=== PATIENT | female | born 1990 | race Caucasian/White ===

== ENCOUNTER 2016-09-07 01:32 | Emergency (ER) | payer SELFPAY ==
[2016-09-07 02:13] LABS: #Basophils 0.1 thou/uL (0.0-0.2); #Eosinphils 0.2 thou/uL (0.0-0.7); #Lymphocytes 1.4 thou/uL (1.20-3.40); #Monocytes 0.7 thou/uL (0.11-0.59); #Neutrophils 5.6 thou/uL (1.40-6.50); %Basophils 0.7 % (0.0-1.0); %Eosinophils 2.1 % (0.0-10.0); %Monocytes 8.2 % (0.0-10.0); Mean Platelet Volume 6.5 fL (7.4-10.4); Red Blood Cell (RBC) Count 4.68 mill/uL (4.20-5.40); White Blood Cell (WBC) Count 7.9 thou/uL (4.8-10.8)
[2016-09-07 02:27] LABS: Blood, Urine Negative (Negative); Glucose, Urine (Dipstick) 100 mg/dL (Negative); Ketone, Urine Negative (Negative); Nitrite Positive (Negative); Protein, Urine (Dipstick) 100 mg/dL (Neg-Trace)
[2016-09-07 02:28] LABS: ALT (SGPT) 610 U/L (0-55); AST (SGOT) 358 U/L (5-34); Alkaline Phosphatase 168 U/L (40-150); Anion Gap 14 mmol/L (10-20); BUN (Urea Nitrogen) 7 mg/dL (7.0-18.7); Bilirubin, Total 5.2 mg/dL (0.2-1.2); Calc. Creatinine Clearance 0 mL/min (70-130); Calcium 9.7 mg/dL (7.8-10.44); Carbon Dioxide 25 mmol/L (22-29); Chloride 107 mmol/L (98-107); Estimated GFR-MDRD 81; Globulin 3.3 g/dL (2.4-3.5); Lipase 57 U/L (8-78); Protein, Total 7.7 g/dL (6.0-8.3)
[2016-09-07 02:30] LABS: Bilirubin Large (Negative)
[2016-09-07 02:34] LABS: Bacteria/HPF 3+ HPF (None Seen); Squamous Epithelial 0-3 HPF (0-3)
[2016-09-07] MEDS ORDERED: Ketorolac Tromethamine 30 MG/ML VIAL ONE (02:48)
[2016-09-07] MEDS ORDERED: Ondansetron HCl/PF 4 MG/2 ML Vial ONE (02:48)
[2016-09-07] MEDS ORDERED: Ondansetron HCl/PF 4 MG/2 ML Vial IVP SCH (03:00)
[2016-09-07] MEDS ORDERED: Ketorolac Tromethamine 30 MG/ML VIAL IVP SCH (03:00)
[2016-09-07] MEDS ORDERED: Sodium Chloride 0.9% 1,000 ML IV SCH (03:00)
[2016-09-07] MEDS ORDERED: cefTRIAXone\\ROCEPHIN 1 GM VIAL ONE (03:51)
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
--- NOTE | 2016-09-07 04:39 | PICIS ---
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 AcctNum: [id number] Prepared: WedSep 07, 2016 04:37 by Interface Page 9 of 13 pMD [facility] EMERGENCY RECORD sensory deficits. SKIN: Skin exam included findings of skin warm, dry, and normal in color. LAB INTERPRETATION (03:41 MBRI) INTERPRETATION: I reviewed the lab results. EVENTS TRANSFER: Triage to Emergency Emergency Room -02. (01:39 AADK) Removed from Emergency Emergency Room -02. (04:27 AADK) RADIOLOGYINTERPRETATION (03:47 MBRI) ABDOMEN: Abdomen/pelvis CT scan, with contrast shows, Other findings: biliary ductal dilatation with abrupt cutoff of the distal CBD. May represent choledocholithiasis or nonvisualized mass in this region. TRAVEL COUNSELOR: Preliminary review of CT scans by, Radiologist. O2SAT INTERPRETATION (02:16 MBRI) O2SAT: Oxygen saturation interpretation: Normal. DOCTOR NOTES TEXT: Findings noted and plan discussed with pt and family. Pt stable for ground EMS transfer to [facility] for further evaluation and care. Discussed with Dr Conklin, accepted for care at 0346. Abx started for probable UTI. Pain improved at this time and VSS. (03:49 MBRI) PATIENT STATUS: Patient has stabilized since arrival to emergency department. (03:49 MBRI) PATIENT PLAN: The patient requires a transfer and will be transferred, per physician request, due to availability of specialty care, Transfer form completed. (03:44 MBRI) DATA REVIEWED: Lab data reviewed, Xray data reviewed, Discussed with family. (03:49 MBRI) PROBLEM LIST No recorded problems DIAGNOSIS (03:52 MBRI) FINAL: PRIMARY: Possible choledocholithiasis vs other obstructive process, ADDITIONAL: hepatitis, UTI. DISPOSITION PATIENT: Disposition Type: Transfer, Disposition: Transfer to [facility], Condition: Fair. (03:52 MBRI) Patient left the department. (04:27 AADK) PRESCRIPTION No recorded prescriptions &a-1R&a+25V*p+0X*f3779M*c202B*c15G*c2P*p-0X&a-25V&a+1R Name: Deborah Rizzo : 1990 F26 MedRec: [id number] AcctNum: [id number] Prepared: WedSep 07, 2016 04:37 by Interface Page 10 of 13 pMD [facility] EMERGENCY RECORD IMAGING *SUPPLY CHARGE SHEET: Image captured from scanner. (04:00 AADK) CT REPORT: Image captured from scanner. (04:00 AADK) Page 2 added. Image captured from scanner. (04:01 AADK) PHYSICIAN CERTIFICATION STATEMENT: Image captured from scanner. (04:01 AADK) *MEMORANDUM OF TRANSFER: Image captured from scanner. (04:01 AADK) CONSENTS: Image captured from scanner. (04:02 AADK) RESULTS (02:38 MBRI) LABORATORY: Urinalysis with Microscopic Collection DT: WedSep 07, 2016 02:27, Color Dark yellow , Range (Yellow), Clarity Cloudy , Range (Clear), Specific [place], Urine 1.030 , Range (1.002-1.036), pH, Urine 6.0 , Range (5.0-9.0), *Leukocyte Small - H , Range (Negative), *Nitrite Positive - H , Range (Negative), *Protein, Urine (Dipstick) 100 - H mg/dL, Range (Neg-Trace), *Glucose, Urine (Dipstick) 100 - H mg/dL, Range (Negative), Ketone, Urine Negative mg/dL, Range (Negative), Urobilinogen 1.0 mg/dL, Range (0.2-1.0), *Bilirubin Large - H , Range (Negative), CAUTION Urine, Bilirubin has a high incidence of false positive results due to urine color, interference. Interpret results in conjunction with other clinical, findings. , Blood, Urine Negative , Range (Negative), RBC/HPF 4-6 HPF, Range (0-3), *WBC/HPF Greater Than 50-TNTC HPF, * - H , Range (0-3), Squamous Epithelial 0-3 HPF, Range (0-3), *Bacteria/HPF 3+ - H HPF, Range (None Seen). Lipase Collection DT: WedSep 07, 2016 02:17, Lipase 57 U/L, Range (8-78). Comprehensive Metabolic Panel Collection DT: WedSep 07, 2016 02:17, Sodium 143 mmol/L, Range (136-145), *Potassium 3.2 - L mmol/L, Range (3.5-5.1), Chloride 107 mmol/L, Range (98-107), Carbon Dioxide 25 mmol/L, Range (22-29), Anion Gap 14 mmol/L, Range (10-20), BUN (Urea Nitrogen) 7 mg/dL, Range (7.0-18.7), Creatinine 0.84 mg/dL, Range (0.6-1.1), Estimated GFR-MDRD 81 , Reference Range for Estimated GFR: Greater than 90, mL/min/1.73 m2 &a-1R&a+25V*p+0X*b3490Y*c202B*c15G*c2P*p-0X&a-25V&a+1R Name: Deborah Rizzo : 1990 [address]: [id number] AcctNum: [id number] Prepared: WedSep 07, 2016 04:37 by Interface Page 11 of 13 pMD [facility] EMERGENCY RECORD NOTE: The MDRD equation has not been validated for use, with the elderly (over 70 years of age), women, patients with, serious comorbid condition or persons with extremes of body size, muscle, mass, or nutritional status. , *Glucose 139 - H mg/dL, Range (70-105), Calcium 9.7 mg/dL, Range (7.8-10.44), *Bilirubin, Total 5.2 - H mg/dL, Range (0.2-1.2), Protein, Total 7.7 g/dL, Range (6.0-8.3), NOTE: Plasma values are generally 0.3 to 0.5 g/dL higher than serum values, due to the presence of fibrinogen. , Albumin 4.4 g/dL, Range (3.5-5.0), Globulin 3.3 g/dL, Range (2.4-3.5), Alb/Glob Ratio 1.3 g/dL, Range (1.2-2.2), *Alkaline Phosphatase 168 - H U/L, Range (40-150), *AST (SGOT) 358 - H U/L, Range (5-34), *ALT (SGPT) 610 - H U/L, Range (0-55). CBC with Differential Collection DT: WedSep 07, 2016 02:17, White Blood Cell (WBC) Count 7.9 thou/uL, Range (4.8-10.8), Red Blood Cell (RBC) Count 4.68 mill/uL, Range (4.20-5.40), Hemoglobin 13.3 g/dL, Range (12.0-16.0), Hematocrit 41.0 %, Range (36.0-47.0), Mean Corpuscular Volume 87.5 fl, Range (81.0-99.0), Mean Corpuscular Hemoglobin 28.4 pg, Range (27.0-31.0), Mean Corpuscular HGB CONC 32.4 g/dL, Range (32.0-36.0), RBC Distribution Width 13.7 %, Range (11.5-14.5), Platelet Count 268 thou/uL, Range (130-400), *Mean Platelet Volume 6.5 - L fL, Range (7.4-10.4), %Neutrophils 71.4 %, Range (42.0-75.0), *%Lymphocytes 17.6 - L %, Range (21.0-51.0), %Monocytes 8.2 %, Range (0.0-10.0), %Eosinophils 2.1 %, Range (0.0-10.0), %Basophils 0.7 %, Range (0.0-1.0), #Neutrophils 5.6 thou/uL, Range (1.40-6.50), #Lymphocytes 1.4 thou/uL, Range (1.20-3.40), *#Monocytes 0.7 - H thou/uL, Range (0.11-0.59), #Eosinphils 0.2 thou/uL, Range (0.0-0.7), #Basophils 0.1 thou/uL, Range (0.0-0.2). Test, Serum (BHCG) Collection DT: WedSep 07, 2016 02:17, BHCG - Serum NEGATIVE , Range (NEGATIVE), Method of sensitivity- Indeterminant: results should be repeated, after 48 hours. Positive: results may be detected as early as 4-5 days before a first missed menses. Elimination of BHCG-, Elimination following first trimester D&C: 29-44 Days , Elimination following term : 8-24 Days . &a-1R&a+25V*p+0X*l3393A*c202B*c15G*c2P*p-0X&a-25V&a+1R Name: Deborah Rizzo : 1990 F26 MedRec: [id number] AcctNum: [id number] Prepared: WedSep 07, 2016 04:37 by Interface Page 12 of 13 pMD [facility] EMERGENCY RECORD Bravo: AADK=TRAY Quiros, Lexis MBRI=DO Hickman Matthew &a-1R&a+25V*p+0X*d1920F*c202B*c15G*c2P*p-0X&a-25V&a+1R Name: Deborah Rizzo [place] : 1990 F26 MedRec: [id number] AcctNum: [id number] Prepared: [facility] Sep 07, 2016 04:37 by Interface Page 13 of 13 pMD MTDD
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
== END 2016-09-07 04:18 | disposition short-term general hospital (02) ==
LOC: BURERS 01:32
DX: K75.9 Inflammatory liver disease, unspecified (principal); N39.0 Urinary tract infection, site not specified; I10 Essential (primary) hypertension; E11.9 Type 2 diabetes mellitus without complications
CPT/HCPCS: 74177; 80053; 81001; 83690; 84703; 85025; 87077; 87086; 87186; 96361; 96365; 96375; J0696; J1885; J2270; J2405

== ENCOUNTER 2016-09-28 20:23 | Emergency (ER) | payer SELFPAY ==
--- NOTE | 2016-09-28 21:07 | ERRECORD ---
[facility] HPI WOUND CHECK (20:53 [facility]) CHIEF COMPLAINT: Patient presents for evaluation of abdominal wound, incision, closed with sutures, Wound is 14 days old. HISTORIAN: History provided by patient, 26F presents with complaints of bleeding from surgical site. Patient had a what seems to be an open cholecystectomy and bile duct stone removal after failed ERCP, on Sep 14. States that over the last two days she has noticed some blood from lateral aspect of incision site and from umbilical surgical site as well. Describes dark oozing blood that resolved spontaneously. Denies other discharge, denies redness, denies pain or tenderness. LOCATION: Symptoms are localized. TIME COURSE: Sudden onset of symptoms, Symptoms have resolved. ASSOCIATED WITH: No associated symptoms. EXACERBATED BY: Patient's condition exacerbated by nothing. RELIEVED BY: Patient's condition relieved by time. ROS (20:56 JJA) CONSTITUTIONAL: Negative constitutional review of systems, Historian denies chills, denies fever. EYES: Negative eye review of systems, Historian denies eye pain, denies vision changes. ENT: Negative ears, nose, throat review of systems, Historian denies rhinorrhea, denies sore throat, denies voice changes. CARDIOVASCULAR: Negative cardiovascular review of systems, Historian denies chest pain, denies palpitations. RESPIRATORY: Negative respiratory review of systems, Historian denies cough, denies shortness of breath. GI: Negative gastrointestinal review of systems, Historian denies abdominal pain, denies constipation, denies diarrhea, denies nausea, denies vomiting. GENITOURINARY FEMALE: Negative genitourinary review of systems, Historian denies dysuria, denies frequency. MUSCULOSKELETAL: Negative musculoskeletal review of systems, Historian denies back pain, denies fall, denies injury. SKIN: Historian denies rash, Historian denies skin changes. dark blood oozing from lateral incision and umbilicus. NEUROLOGIC: Negative neurologic review of systems, Historian denies headache, denies mental status changes, denies paralysis, denies paresthesias, denies sensory changes. HEMO/LYMPHATIC: Normal hematologic/lymphatic system review, Historian denies abnormal blood clotting. ALLERGIC/IMMUNOLOGIC: Normal allergy/immunologic system review, Historian denies frequent infections. PAST MEDICAL HISTORY (20:33 KMOR) MEDICAL HISTORY: Notes: HYPOTENSION WITH ; PT STATES SHE HAD A "UTI" A COUPLE OF MONTHS AGO BUT DID NOT SEEK TREATMENT FOR THIS., Flu vaccine not up to date, Tetanus not up to date, Pneumococcal vaccine not up to date, No past medical history of &a-1R&a+25V*p+0X*n9335G*c202B*c15G*c2P*p-0X&a-25V&a+1R Name: Deborah Rizzo : 1990 F26 MedRec: [id number] AcctNum: [id number] Prepared: WedSep 28, 2016 21:02 by Interface Page 1 of 3 pMD [facility] EMERGENCY RECORD renal disease. FEMALE SURGICAL HISTORY: Surgical history of cholecystectomy, RIGHT BREAST LUMPECTOMY 2010. PSYCHIATRIC HISTORY: No previous psychiatric history. SOCIAL HISTORY: Patient denies alcohol use, Patient denies drug use, Patient has no smoking history, Lives at home, with family. FAMILY HISTORY: Paternal history of diabetes:, Paternal history of hypertension:, Maternal history of diabetes, Maternal history of hypertension. KNOWN ALLERGIES cold weather/temperatures (Unconfirmed) No Known Allergies seasonal allergies (Unconfirmed) CURRENT MEDICATIONS (20:31 KMOR) None VITAL SIGNS (20:29 KMOR) VITAL SIGNS: BP: 125/77, Pulse: 89, Resp: 18, Temp: 98.2 (Oral), Pain: 3, O2 sat: 100 on Room Air, Time: 09/28/2016 20:29. PHYSICAL EXAM (20:56 [facility]) CONSTITUTIONAL: Vital signs reviewed, Patient afebrile, Pulse normal, Blood pressure normal, Respiratory rate normal, Patient appears non toxic, Patient appears pain free, Patient alert and oriented to person, place and time. HEAD: Head exam normal, Head exam included findings of head atraumatic, normocephalic. EYES: Eye exam normal, Eye exam included findings of eyelids normal to inspection, Pupils equally round and reactive to light, Extraocular muscles intact, no nystagmus. ENT: ENT exam normal, Ear exam normal, external ear normal, tympanic membranes normal, no bleeding, Pharynx exam normal, Uvula exam normal, Tonsil exam normal, Mouth exam normal, mucous membranes moist, teeth normal. NECK: Neck exam normal, Neck exam included findings of normal range of motion, Trachea midline, no meningeal signs, no cervical adenopathy, no tenderness. RESPIRATORY CHEST: Respiratory and chest exam normal, Respiratory exam included findings of no respiratory distress, Breath sounds clear. CARDIOVASCULAR: Cardiovascular assessment normal, Cardiovascular exam included findings of heart rate regular rate and rhythm, Heart sounds normal. ABDOMEN FEMALE: Abdominal exam included findings of abdomen nontender, Bowel sounds normal, no distension, no mass, no pulsatile masses, no peritoneal signs, no rigidity, no guarding, no rebound, Rovsing's sign absent. &a-1R&a+25V*p+0X*h1756Y*c202B*c15G*c2P*p-0X&a-25V&a+1R Name: Deborah Rizzo : 1990 F26 MedRec: [id number] AcctNum: [id number] Prepared: WedSep 28, 2016 21:02 by Interface Page 2 of 3 pMD [facility] EMERGENCY RECORD BACK: Back exam normal, Back exam included findings of normal inspection, range of motion normal, no tenderness. UPPER EXTREMITY: Upper extremity exam normal, Upper extremity exam included findings of inspection normal, Range of motion normal, Motor strength normal, Sensation intact, Radial pulse normal. LOWER EXTREMITY: Lower extremity exam normal, Lower extremity exam included findings of inspection normal, Range of motion normal, Motor strength normal, Sensation intact, Posterior tibial pulse normal, Pedal pulse normal. NEURO: Neuro exam normal, Neuro exam findings include patient oriented to person, place and time, Speech normal, Gait normal, Cranial nerves intact, no focal motor deficits, no focal sensory deficits. SKIN: Skin exam included findings of skin warm, dry, and normal in color, no rash, able to express small amount of dark blood from lateral aspect of incision site and umbilicus. No obvious active bleeding. No other discharge. Mild minimal pocket felt inferior to the incision site. Bedside US shows only small superficial pockets, no deeper pocket. No skin erythema. Old ecchymosis beginning to turn yellow. PSYCHIATRIC: Psychiatric exam normal, Normal affect. DOCTOR NOTES (20:59 [facility]) TEXT: Patient presented with mild post op bleeding. No active bleeding, only mild oozing of dark blood. Small pockets seen deep to incision with bedside US, in subcutaneous tissue. No evidence of fistula to intraabdominal contents. Likely normal breakdown products oozing. No signs of infection, no need for further workup or investigation at this time. has follow up scheduled with surgeon in 3 days. PATIENT STATUS: Patient has improved since arrival to emergency department. PATIENT PLAN: The patient will be discharged, The patient will follow up with primary care physician. PROBLEM LIST No recorded problems [facility] FINAL: PRIMARY: OTHER ACUTE POSTPROCEDURAL PAIN. PRESCRIPTION No recorded prescriptions DISPOSITION PATIENT: Disposition Type: Discharge, Disposition: *Discharge Home. [facility] Patient left the department. (20:59 KMOR) Bravo: STEPHANIE=MD Evie, Shubham KMOR=TRAY Estes, Rupa &a-1R&a+25V*p+0X*p5126M*c202B*c15G*c2P*p-0X&a-25V&a+1R Name: Deborah Rizzo [place] : 1990 F26 MedRec: [id number] AcctNum: [id number] Prepared: WedSep 28, 2016 21:02 by Interface Page 3 of 3 pMD MTDD
--- NOTE | 2016-09-28 21:10 | PICIS ---
[facility] EMERGENCY RECORD TRIAGE (20:30 KMOR) TRIAGE NOTES: Post Op bleeding from mami site, was seen on the weekend for same, now bleeding again. (20:30 KMOR) PATIENT: NAME: Deborah Rizzo, AGE: 26, GENDER: female, : Wed1990, TIME OF GREET: WedSep 28, 2016 20:24, PREFERRED LANGUAGE: Slovenian, ETHNICITY: Not or , ECODE BILLING MAP: [facility], SSN: [id number], Zip Code: [address], KG WEIGHT: 99.79, HEIGHT/LENGTH: 160.02cm, BMI: 38.97, PHONE: , , , PERSON ID: [id number], PAYMENT: SJX Self Pay, PCP: none. (20:30 KMOR) COMPLAINT: Post op complications. (20:30 KMOR) ADMISSION: URGENCY: 4 Non Urgent, ADMISSION SOURCE: Home, TRANSPORT: CAR, BED: ER -02. (20:30 KMOR) ASSESSMENT: Assessment: A&XO4. RR EVNE AND UNLABROED., Symptoms began 30 min ago. (20:33 KMOR) PAIN: No complaint of pain. (20:33 KMOR) SIRS SCORING: Heart Rate 55-109 (0), Temp range 96.8-101.1 (0), respiratory rate 12-24 (0), Mental Status altered: no (0), Infection or Suspected Infection: No. (20:33 KMOR) TRIAGE SCREENING: Patient denies suicidal ideation, Patient denies presence of domestic violence. (20:33 KMOR) LMP: Last menstrual period: 09/18/2016. (20:33 KMOR) PROVIDERS: TRIAGE NURSE: Rupa Estes RN. (20:30 KMOR) VITAL SIGNS: BP 125/77, Pulse 89, Resp 18, Temp 98.2, (Oral), Pain 3, O2 Sat 100, on Room Air, Time 09/28/2016 20:29. (20:29 KMOR) PREVIOUS VISIT ALLERGIES: No Known Allergies. (20:30 KMOR) No Known Allergies. (20:33 KMOR) KNOWN ALLERGIES cold weather/temperatures (Unconfirmed) No Known Allergies seasonal allergies (Unconfirmed) CURRENT MEDICATIONS (20:31 KMOR) None VITAL SIGNS (20:29 KMOR) VITAL SIGNS: BP: 125/77, Pulse: 89, Resp: 18, Temp: 98.2 (Oral), Pain: 3, O2 sat: 100 on Room Air, Time: 09/28/2016 20:29. NURSING ASSESSMENT: SKIN (20:40 KMOR) CONSTITUTIONAL: Patient arrives ambulatory, Gait steady, History obtained from patient, Patient appears comfortable, Patient cooperative, Patient alert, Oriented to person, place and time, Skin warm, Skin dry, Skin normal in color, Mucous membranes pink, Mucous membranes moist, Patient is well-groomed, Patient complains of Bleeding from incision site, Patient reports an open mami on 1.9, reports over the weekend had bleeding from left side of incision site, reports today bleeding from umbilical site. Bleeding currently controlled. &a-1R&a+25V*p+0X*[id number]*c202B*c15G*c2P*p-0X&a-25V&a+1R Name: Deborah Rizzo : 1990 F26 MedRec: [id number] AcctNum: [id number] Prepared: WedSep 28, 2016 21:02 by Interface Page 1 of 5 pMD [facility] EMERGENCY RECORD PAIN: dull pain, on a scale 0-10 patient rates pain as 3. SKIN: Skin assessment findings include skin warm, Skin dry, Skin normal in color, Notes: Steristrips on incision site across the left abdomen. Telfa pad across site, minimal old blood on site. No active bleeding from umbilicus. glue in place and edges well approximated. NOTES: Patient tolerated procedure well. NURSING PROCEDURE: DISCHARGE NOTE (20:57 KMOR) DISCHARGE: Patient discharged to home, ambulating without assistance, driving self, unaccompanied, Summary of Care printed/ provided, Transition record given to patient, Discharge instructions given to patient, Simple or moderate discharge teaching performed, by TRAY Goode, Discharge instructions and follow up reviewed with patient. Pt ambulatory to discharge desk., Above person(s) verbalized understanding of discharge instructions and follow-up care. BELONGINGS: Belongings remain with patient, Valuables remain with patient. NURSING PROCEDURE: NURSE NOTES (20:51 KMOR) NURSES NOTES: Notes: Incision cites redressed with telfa pads and taped with paper tape. Patient tolerated well. NO fresh blood noted on exam. HPI WOUND CHECK (20:53 [facility]) CHIEF COMPLAINT: Patient presents for evaluation of abdominal wound, incision, closed with sutures, Wound is 14 days old. HISTORIAN: History provided by patient, 26F presents with complaints of bleeding from surgical site. Patient had a what seems to be an open cholecystectomy and bile duct stone removal after failed ERCP, on Sep 14. States that over the last two days she has noticed some blood from lateral aspect of incision site and from umbilical surgical site as well. Describes dark oozing blood that resolved spontaneously. Denies other discharge, denies redness, denies pain or tenderness. LOCATION: Symptoms are localized. TIME COURSE: Sudden onset of symptoms, Symptoms have resolved. ASSOCIATED WITH: No associated symptoms. EXACERBATED BY: Patient's condition exacerbated by nothing. RELIEVED BY: Patient's condition relieved by time. ROS (20:56 [facility]) CONSTITUTIONAL: Negative constitutional review of systems, Historian denies chills, denies fever. EYES: Negative eye review of systems, Historian denies eye pain, denies vision changes. ENT: Negative ears, nose, throat review of systems, Historian denies rhinorrhea, denies sore throat, denies voice changes. &a-1R&a+25V*p+0X*[id number]*c202B*c15G*c2P*p-0X&a-25V&a+1R Name: Deborah Rizzo : 1990 F26 MedRec: [id number] AcctNum: [id number] Prepared: WedSep 28, 2016 21:02 by Interface Page 2 of 5 pMD [facility] EMERGENCY RECORD CARDIOVASCULAR: Negative cardiovascular review of systems, Historian denies chest pain, denies palpitations. RESPIRATORY: Negative respiratory review of systems, Historian denies cough, denies shortness of breath. GI: Negative gastrointestinal review of systems, Historian denies abdominal pain, denies constipation, denies diarrhea, denies nausea, denies vomiting. GENITOURINARY FEMALE: Negative genitourinary review of systems, Historian denies dysuria, denies frequency. MUSCULOSKELETAL: Negative musculoskeletal review of systems, Historian denies back pain, denies fall, denies injury. SKIN: Historian denies rash, Historian denies skin changes. dark blood oozing from lateral incision and umbilicus. NEUROLOGIC: Negative neurologic review of systems, Historian denies headache, denies mental status changes, denies paralysis, denies paresthesias, denies sensory changes. HEMO/LYMPHATIC: Normal hematologic/lymphatic system review, Historian denies abnormal blood clotting. ALLERGIC/IMMUNOLOGIC: Normal allergy/immunologic system review, Historian denies frequent infections. PAST MEDICAL HISTORY (20:33 KMOR) MEDICAL HISTORY: Notes: HYPOTENSION WITH ; PT STATES SHE HAD A "UTI" A COUPLE OF MONTHS AGO BUT DID NOT SEEK TREATMENT FOR THIS., Flu vaccine not up to date, Tetanus not up to date, Pneumococcal vaccine not up to date, No past medical history of renal disease. FEMALE SURGICAL HISTORY: Surgical history of cholecystectomy, RIGHT BREAST LUMPECTOMY 2010. PSYCHIATRIC HISTORY: No previous psychiatric history. SOCIAL HISTORY: Patient denies alcohol use, Patient denies drug use, Patient has no smoking history, Lives at home, with family. FAMILY HISTORY: Paternal history of diabetes:, Paternal history of hypertension:, Maternal history of diabetes, Maternal history of hypertension. PHYSICAL EXAM (20:56 [facility]) CONSTITUTIONAL: Vital signs reviewed, Patient afebrile, Pulse normal, Blood pressure normal, Respiratory rate normal, Patient appears non toxic, Patient appears pain free, Patient alert and oriented to person, place and time. HEAD: Head exam normal, Head exam included findings of head atraumatic, normocephalic. EYES: Eye exam normal, Eye exam included findings of eyelids normal to inspection, Pupils equally round and reactive to light, Extraocular muscles intact, no nystagmus. ENT: ENT exam normal, Ear exam normal, external ear normal, tympanic membranes normal, no bleeding, Pharynx exam normal, Uvula exam normal, Tonsil exam normal, Mouth exam normal, mucous membranes &a-1R&a+25V*p+0X*[id number]*c202B*c15G*c2P*p-0X&a-25V&a+1R Name: Deborah Rizzo [place] : 1990 F26 MedRec: [id number] AcctNum: [id number] Prepared: WedSep 28, 2016 21:02 by Interface Page 3 of 5 pMD [facility] EMERGENCY RECORD moist, teeth normal. NECK: Neck exam normal, Neck exam included findings of normal range of motion, Trachea midline, no meningeal signs, no cervical adenopathy, no tenderness. RESPIRATORY CHEST: Respiratory and chest exam normal, Respiratory exam included findings of no respiratory distress, Breath sounds clear. CARDIOVASCULAR: Cardiovascular assessment normal, Cardiovascular exam included findings of heart rate regular rate and rhythm, Heart sounds normal. ABDOMEN FEMALE: Abdominal exam included findings of abdomen nontender, Bowel sounds normal, no distension, no mass, no pulsatile masses, no peritoneal signs, no rigidity, no guarding, no rebound, Rovsing's sign absent. BACK: Back exam normal, Back exam included findings of normal inspection, range of motion normal, no tenderness. UPPER EXTREMITY: Upper extremity exam normal, Upper extremity exam included findings of inspection normal, Range of motion normal, Motor strength normal, Sensation intact, Radial pulse normal. LOWER EXTREMITY: Lower extremity exam normal, Lower extremity exam included findings of inspection normal, Range of motion normal, Motor strength normal, Sensation intact, Posterior tibial pulse normal, Pedal pulse normal. NEURO: Neuro exam normal, Neuro exam findings include patient oriented to person, place and time, Speech normal, Gait normal, Cranial nerves intact, no focal motor deficits, no focal sensory deficits. SKIN: Skin exam included findings of skin warm, dry, and normal in color, no rash, able to express small amount of dark blood from lateral aspect of incision site and umbilicus. No obvious active bleeding. No other discharge. Mild minimal pocket felt inferior to the incision site. Bedside US shows only small superficial pockets, no deeper pocket. No skin erythema. Old ecchymosis beginning to turn yellow. PSYCHIATRIC: Psychiatric exam normal, Normal affect. EVENTS TRANSFER: Triage to Emergency Emergency Room -02. (WedSep 28, 2016 20:30 KMOR) Removed from Emergency Emergency Room -02. (20:59 KMOR) DOCTOR NOTES (20:59 [facility]) TEXT: Patient presented with mild post op bleeding. No active bleeding, only mild oozing of dark blood. Small pockets seen deep to incision with bedside US, in subcutaneous tissue. No evidence of fistula to intraabdominal contents. Likely normal breakdown products oozing. No signs of infection, no need for further workup or investigation at this time. has follow up scheduled with surgeon in 3 days. PATIENT STATUS: Patient has improved since arrival to emergency &a-1R&a+25V*p+0X*d5409G*c202B*c15G*c2P*p-0X&a-25V&a+1R Name: Deborah Rizzo : 1990 F26 MedRec: [id number] AcctNum: [id number] Prepared: WedSep 28, 2016 21:02 by Interface Page 4 of 5 pMD [facility] EMERGENCY RECORD department. PATIENT PLAN: The patient will be discharged, The patient will follow up with primary care physician. PROBLEM LIST No recorded problems DIAGNOSIS (20:51 JJA) FINAL: PRIMARY: OTHER ACUTE POSTPROCEDURAL PAIN. DISPOSITION PATIENT: Disposition Type: Discharge, Disposition: *Discharge Home. (20:51 JJA) Patient left the department. (20:59 KMOR) INSTRUCTION (20:51 JJA) DISCHARGE: BLEEDING POSTOP. SPECIAL: Follow up with your surgeon as scheduled on . If you have an increase in the bleeding, more severe pain, or new redness around the site, return to the ED. PRESCRIPTION No recorded prescriptions IMAGING (20:58 KMOR) *DISCHARGE INSTRUCTIONS RECEIPT: Image captured from scanner. *SUPPLY CHARGE SHEET: Image captured from scanner. ADMIN DIGITAL SIGNATURE: TRAY Estes Krista. (20:59 KMOR) MD Case Jason. (21:01 [facility]) Bravo: STEPHANIE=MD Case Jason KMOR=TRAY Estes Krista &a-1R&a+25V*p+0X*[id number]*c202B*c15G*c2P*p-0X&a-25V&a+1R Name: Deborah Rizzo : 1990 F26 MedRec: [id number] AcctNum: [id number] Prepared: WedSep 28, 2016 21:02 by Interface Page 5 of 5 pMD MTDD
== END 2016-09-28 20:50 | disposition home or self-care (01) ==
LOC: BURERS 20:23
DX: G89.18 Other acute postprocedural pain (principal); Z87.440 Personal history of urinary (tract) infections